=== PATIENT | female | born 1970 | race Caucasian/White ===

== ENCOUNTER 2020-09-18 20:50 | Emergency (ER) | payer OTHER ==
[~2020-09-18] VITALS: Ht 160 cm; Wt 66.7 kg
[~2020-09-18 20:50] MED LIST: NAPROXEN SODIU550 MG PO
[2020-09-18] MEDS ORDERED: LEXAPRO20 MG PO (21:10)
[2020-09-19] MEDS ORDERED: FLAGYL500MG PO (11:47)
[2020-09-19] MEDS ORDERED: PEPCID AC20 MG PO (11:47)
[2020-09-19] MEDS ORDERED: CIPRO500 MG PO (11:47)
[2020-09-19] MEDS ORDERED: INTESTINEX680 M1 PO (11:47)
[2020-09-19] MEDS ORDERED: LEVSIN/SL0.125 MG SL (11:47)
[2020-09-19] MEDS ORDERED: PROTONIX40 MG PO (11:47)
== END 2020-09-19 21:14 | disposition home or self-care (01) ==
LOC: ER 20:50
DX: K52.9 Noninfective gastroenteritis and colitis, unspecified (principal); E86.0 Dehydration; R50.9 Fever, unspecified